=== PATIENT | female | born 2000 | race Caucasian/White ===

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

== ENCOUNTER 2022-04-21 13:33 | Emergency (ER) | payer MEDICAID ==
[2022-04-21] MEDS ORDERED: Ondansetron 4 MG Tab.DIS PO ONE (14:24)
== END 2022-04-21 16:44 | disposition home or self-care (01) ==
LOC: MW.ED 13:33
DX: S06.0X9A Concussion with loss of consciousness of unspecified duration, initial encounter (principal); Z88.0 Allergy status to penicillin; W18.09XA Striking against other object with subsequent fall, initial encounter
CPT/HCPCS: 70450; 81025; 99284; A9270; 99283

== ENCOUNTER 2023-02-28 09:43 | Emergency (ER) | payer MEDICAID ==
[2023-02-28] MEDS ORDERED: Sodium Chloride 0.9% 2.5 ML Syringe FLUSH PRN (10:13)
[2023-02-28] MEDS ORDERED: Sodium Chloride 0.9% 10 ML Syringe FLUSH PRN (10:13)
[2023-02-28 10:46] LABS: POTASSIUM,K 3.9 mmol/L (3.5-5.1)
== END 2023-02-28 13:52 | disposition home or self-care (01) ==
LOC: MW.ED 09:43
DX: K08.89 Other specified disorders of teeth and supporting structures (principal); T39.091A Poisoning by salicylates, accidental (unintentional), initial encounter; Z88.0 Allergy status to penicillin; Z72.0 Tobacco use
CPT/HCPCS: 36415; 80053; 80179; 82803; 83605; 85025; 85610; 93005; 99283; J3490; 93010; 99284

== ENCOUNTER 2023-10-02 15:30 | Emergency (ER) | payer MEDICAID ==
[2023-10-02] MEDS ORDERED: Cephalexin 500 MG Cap PO ONE (17:32)
[2023-10-02] MEDS ORDERED: Acetaminophen/oxyCODONE 325-5 MG Tab PO ONE (17:36)
== END 2023-10-02 18:01 | disposition home or self-care (01) ==
LOC: MW.ED 15:30
DX: L08.9 Local infection of the skin and subcutaneous tissue, unspecified (principal); F17.210 Nicotine dependence, cigarettes, uncomplicated; Z79.899 Other long term (current) drug therapy; Z88.0 Allergy status to penicillin
CPT/HCPCS: 70450; 99284; A9270; 99283

== ENCOUNTER 2025-07-27 12:31 | Emergency (ER) | payer SELFPAY | END 2025-07-27 13:01 | disposition home or self-care (01) | LOC: MW.ED 12:31 | DX: K04.7 Periapical abscess without sinus (principal); Z75.3 Unavailability and inaccessibility of health-care facilities; Z88.0 Allergy status to penicillin | CPT/HCPCS: 99282 ==